=== PATIENT | male | born 1965 | race Caucasian/White ===

== ENCOUNTER → 2016-08-22 | Outpatient (CLI) | payer BC, OTHER ==
[2016-08-25 00:06] LABS: Lyme Disease IgG Ab 18 kDa Ban Absent (.); Lyme Disease IgG Ab 23 kDa Ban Present (.); Lyme Disease IgG Ab 28 kDa Ban Absent (.); Lyme Disease IgG Ab 30 kDa Ban Absent (.); Lyme Disease IgG Ab 39 kDa Ban Absent (.); Lyme Disease IgG Ab 41 kDa Ban Present (.); Lyme Disease IgG Ab 45 kDa Ban Absent (.); Lyme Disease IgG Ab 58 kDa Ban Absent (.); Lyme Disease IgG Ab 66 kDa Ban Absent (.); Lyme Disease IgG Ab 93 kDa Ban Absent (.); Lyme Disease IgG West Blot Int Negative (.); Lyme Disease IgG/IgM Antibodie 0.96 ISR (0.00-0.90); Lyme Disease IgM Ab 23 kDa Ban Present (.); Lyme Disease IgM Ab 39 kDa Ban Absent (.); Lyme Disease IgM Ab 41 kDa Ban Absent (.); Lyme Disease IgM Ab Quantitati <0.80 index (0.00-0.79); Lyme Disease IgM West Blot Int Negative (.)
== END ==
LOC: M WUC 09:32
PROVIDERS: ATTEND Physician Assistant
DX: S80.861A Insect bite (nonvenomous), right lower leg, initial encounter (principal); X58.XXXA Exposure to other specified factors, initial encounter; Y92.89 Other specified places as the place of occurrence of the external cause; Y93.89 Activity, other specified; Y99.8 Other external cause status

== ENCOUNTER → 2019-03-06 | Outpatient (CLI) | payer BC, OTHER ==
--- NOTE | 2019-03-06 09:37 | REP ---
Clinical: Lower back pain. Technique: AP, lateral, bilateral oblique and coned-down views of the lumbosacral spine. Comparison: 06/20/2006. Findings: Mild/early moderate degenerative changes include endplate sclerosis, marginal spurring, minimal disc space narrowing. Alignment and lordosis maintained. No acute fracture / compression injury or subluxation. Impression: By O/moderate multilevel degenerative spondylosis. Electronically Signed by Kenrick Hayward MD 03/06/2019 09:29 A
== END ==
LOC: M WUC 09:11
PROVIDERS: ATTEND Physician Assistant
DX: M51.37 Other intervertebral disc degeneration, lumbosacral region (principal); M47.817 Spondylosis without myelopathy or radiculopathy, lumbosacral region

== ENCOUNTER → 2023-06-06 | Outpatient (REF) | payer BC, OTHER | LOC: M LAB REF 13:22 | PROVIDERS: ATTEND Internal Medicine | DX: R68.82 Decreased libido (principal) ==

== ENCOUNTER → 2023-07-10 | Outpatient (CLI) | payer OTHER | LOC: M RAD 16:05 | PROVIDERS: ATTEND Internal Medicine | DX: Z87.891 Personal history of nicotine dependence (principal) ==

== ENCOUNTER 2024-03-25 06:34 | Day surgery (SDC) | payer OTHER ==
[~2024-03-25] VITALS: Ht 175.3 cm; Wt 105.0 kg
[2024-03-25] MEDS ORDERED: propofoL 500 MG/50 ML VIAL As Ordered ONE (07:43)
[2024-03-25] MEDS ORDERED: LIDOCAINE 2% 100MG/5ML SDV (FOR ANES.) As Ordered ONE (07:43)
[2024-03-25 07:53] VITALS: TEMP 97.9
[2024-03-25 08:10] VITALS: BP 116/84; O2SAT 100
== END 2024-03-25 08:19 | disposition home or self-care (01) ==
LOC: M OPP 06:34
PROVIDERS: ATTEND Internal Medicine Gastroenterology
DX: Z12.11 Encounter for screening for malignant neoplasm of colon (principal); D12.0 Benign neoplasm of cecum; D12.5 Benign neoplasm of sigmoid colon; K64.8 Other hemorrhoids; K21.9 Gastro-esophageal reflux disease without esophagitis